=== PATIENT | female | born 1965 | race African-American/Black ===

== ENCOUNTER 2019-04-14 08:16 | Emergency (ER) | payer MEDICAID ==
[~2019-04-14] VITALS: Ht 165.1 cm; Wt 113.4 kg
[2019-04-14 09:56] VITALS: BP 139/91
== END 2019-04-14 10:29 | disposition home or self-care (01) ==
LOC: ER 08:16
DX: L03.011 Cellulitis of right finger (principal)
CPT/HCPCS: 73140